=== PATIENT | male | born 1945 | race Caucasian/White ===

== ENCOUNTER 2016-09-17 08:12 | Day surgery (SDC) | payer MEDICARE, OTHER ==
--- NOTE | ~2016-09-17 | CN ---
Consultation Report [facility] [address] [place]. [address] NAME: EDGAR BURCH : 47 [place] [facility] [place] [id number] AGE: 71 ADM/REG DATE : 09/17/16 MR#: [id number] REPORT SERV DATE: 09/17/16 DICTATED BY: LV ROONEY DATE: 09/17/16 REPORT STATUS : Draft TRANSCRIBED BY: MODL DATE: 09/17/16 GI CONSULT DATE OF CONSULTATION: 09/17/2016 HISTORY OF PRESENT ILLNESS: This is a pleasant 71-year-old man, who had percutaneous endoscopic gastrostomy tube placement on 06/04/2016. He has been in rehabilitation. He has not used his gastrostomy tube for at least a couple of months. He is eating fine without any symptoms of oropharyngeal dysphagia. No abdominal pain. MEDICAL HISTORY: Reviewed and includes obstructive sleep apnea, hypertension, nephrolithiasis, depression, CABG, bilateral knee replacements, ankle surgery, thumb and finger surgery. Recent diagnosis of ischemic colitis, healed. MEDICATIONS: Extensive and have been reviewed. They include but are not limited to, Pepcid 20 mg twice daily, aspirin daily, polyethylene glycol daily. REVIEW OF SYSTEMS: A complete review of systems was obtained and negative except that noted in the history of present illness. SOCIAL HISTORY: He is a previous smoker, but does not smoke currently. He does not drink. FAMILY HISTORY: Remarkable for colorectal cancer in mother. PHYSICAL EXAMINATION: VITAL SIGNS: Currently afebrile, temperature 98.3, pulse 88, respirations 18, and blood pressure 160/77. EYES: Sclerae, anicteric. NECK: Supple without lymphadenopathy. Pharynx is pink without exudate. LUNGS: Clear to auscultation bilaterally. HEART: Regular rate and rhythm. S1, S2 heard without rubs or gallops. ABDOMEN: Normal bowel sounds. Belly is soft, nontender, nondistended without hepatosplenomegaly. Gastrostomy tube is in place without signs of infection. EXTREMITIES: No pedal edema or rash. NEUROLOGIC: Alert and oriented without focal deficit. MUSCULOSKELETAL: Muscle exam is nontender. PROCEDURE: The PEG site was cleaned and the existing PEG tube was removed with traction technique without any difficulties. There was minimal to no oozing. The site was cleaned thoroughly and dressing was applied. Procedure was very straight forward. The patient tolerated it well. IMPRESSION: Oropharyngeal dysphagia, now resolved. The patient requests PEG tube removal Consultation Report [place] [id number] [place]. [address] NAME: EDGAR BURCH : [birth year] [place]US : [place] [facility] [place]#: [id number] AGE: 71 ADM/REG DATE : 09/17/16 MR#: [id number] REPORT SERV DATE: 09/17/16 DICTATED BY: LV ROONEY DATE: 09/17/16 REPORT STATUS : Draft TRANSCRIBED BY: MODL DATE: 09/17/16 which was done as above. RECOMMENDATIONS: 1. Continue aspirin and Pepcid. 2. Resume full diet today. 3. The patient will follow up in the office as needed. CC/ALFREDO Lv Rooney M.D. / [id number] CC: Nellie Alvarez M.D.
[~2016-09-17 08:12] MED LIST: AMITIZA8 MCG PO; ANDROGEL; ANDROGEL1 % TOP; ASAB PO; AZOR1 TA1 PO; AZOR1 TA3 PO; BION TEARS OPH; CENTRUM TAB1 TAB PO; CIPIV4 IV; D.O.S.100 MG PO; DIGITEK0.125 MG PO; EFFEX75 PO; GGEXPSF PO; GLUCCHONDR PO; HEPA50006 SC; IRON PILL PO; JANTOVEN6 MG PO; JANTOVEN7.5 MG PO; KDUR20 PO; L40 PO; LIPITOR40 PO; LOP25 PO; LORTAB10 PO; LOTE40 PO; LOTREL1 CA4 PO; MAALOX PO; MELA3 PO; MIRALAXPKT PO; MOBIC15 MG PO; MOMUD PO; MULTIPLE VIT PO; NAP500 PO; NEUR300 PO; NEUR600 PO; NEXIUM40 PO; NORCO1 TAB PO; NORV10 PO; OXYCOD PO; PAX10 PO; PAX20 PO; PEP20 PO; PRILO PO; PRILOSEC OTC20 MG PO; PROVENTSOL INH; PROZAC PO; SUCR PO; T PO; WELLXL300 PO; ZANAFLEX 4 MG TA4 MG PO; ZOFRAN IM; ZOFRAN4 PO
[2016-11-03] MEDS ORDERED: L40 PO (19:29)
[2016-11-03] MEDS ORDERED: PEP20 PO (19:29)
[2016-11-03] MEDS ORDERED: EFFEX75 PO (19:30)
[2016-11-03] MEDS ORDERED: NORCO1 TA1 PO (19:32)
[2016-11-03] MEDS ORDERED: T PO (19:32)
[2016-11-03] MEDS ORDERED: MELA3 PO (19:33)
[2016-11-03] MEDS ORDERED: ZOFRAN4 PO (19:33)
[2016-11-03] MEDS ORDERED: ALBUTEROL5 INH (19:34)
[2016-11-03] MEDS ORDERED: ASAB PO (19:34)
[2016-11-03] MEDS ORDERED: LIPITOR40 PO (19:34)
[2016-11-03] MEDS ORDERED: MIRALAX POWDER1 PKT PO (19:35)
[2016-11-03] MEDS ORDERED: DSS PO (19:35)
[2016-11-03] MEDS ORDERED: SUCR PO (19:38)
[2016-11-03] MEDS ORDERED: GERI-LANTA PO (19:41)
== END 2016-09-17 23:59 | disposition home or self-care (01) ==
LOC: DMU 08:12
PROVIDERS: Internal Medicine Gastroenterology
PROC: 0DP63UZ Removal of Feeding Device from Stomach, Percutaneous Approach (ICD-10-PCS; principal; 2016-09-17 08:00)
DX: Z43.1 Encounter for attention to gastrostomy (principal); G47.33 Obstructive sleep apnea (adult) (pediatric); I10 Essential (primary) hypertension; N20.0 Calculus of kidney; F32.9 Major depressive disorder, single episode, unspecified; Z95.1 Presence of aortocoronary bypass graft; Z96.653 Presence of artificial knee joint, bilateral; Z87.19 Personal history of other diseases of the digestive system; Z87.891 Personal history of nicotine dependence; Z80.0 Family history of malignant neoplasm of digestive organs; Z98.890 Other specified postprocedural states; Z79.899 Other long term (current) drug therapy